=== PATIENT | male | born 1965 ===

== ENCOUNTER 2018-12-22 21:17 | Observation (INO) ==
[2018-12-22] MEDS ORDERED: MAGNESIUM SULF RIDER 2 GM in PREMIX 1 EACH IV PRN (23:21)
[2018-12-22] MEDS ORDERED: guaiFENesin/DM ER 600-30 MG TABLET PO PRN (23:21)
[2018-12-22] MEDS ORDERED: ONDANSETRON 4 MG/2 ML VIAL IV PRN (23:21)
[2018-12-22] MEDS ORDERED: NITROGLYCERIN SL 0.4 MG TABLET SL PRN (23:21)
[2018-12-22] MEDS ORDERED: ACETAMINOPHEN 325 MG TABLET PO PRN (23:21)
[2018-12-22] MEDS ORDERED: diphenhydrAMINE CAP 25 MG CAPSULE PO PRN (23:21)
[2018-12-22] MEDS ORDERED: BISACODYL 5 MG TABLET PO PRN (23:21)
[2018-12-22] MEDS ORDERED: MORPHINE 4 MG/1 ML VIAL IV PRN (23:21)
[2018-12-22] MEDS ORDERED: POTASSIUM CHLORIDE 20 MEQ TABLET PO PRN (23:21)
[2018-12-22] MEDS ORDERED: NICOTINE 21 MG/24 HR PATCH TRANSDERM PRN (23:21)
[2018-12-22] MEDS ORDERED: ZALEPLON 5 MG CAPSULE PO PRN (23:21)
[2018-12-22] MEDS ORDERED: MAGNESIUM SULF RIDER 4 GM in PREMIX 1 EACH IV PRN (23:21)
[2018-12-22] MEDS ORDERED: DEXTROSE 50% 25 GM/50 ML SYRINGE IV PRN (23:58)
[2018-12-22] MEDS ORDERED: GLUCAGON 1 MG VIAL IM PRN (23:58)
[2018-12-23 00:12] LABS: Basophils % 0.4 % (0.0-0.8); Eosinophils # 0.2 10*3/uL (0.0-0.87); Hematocrit 38.1 VOL% (42.0-52.0); Hemoglobin 13.7 GM/DL (14.0-18.0); Immature Granulocytes % 0.4 %; Immature Granulocytes Absolute 0.02 #; Lymphocytes # 1.6 10*3/uL (1.4-4.0); Lymphocytes % 29.9 % (21.2-54.2); Mean Corpuscular Hemoglobin 32 PG (27-34); Mean Corpuscular Volume 88.8 FL (87-102); Mean Platelet Volume 11.1 FL (9.6-12.0); Monocytes # 0.6 10*3/uL (0.11-0.8); Monocytes % 10.9 % (1.7-12.7); Neutrophils # 2.8 10*3/uL (1.4-7.4); Neutrophils % 54.4 % (38.7-73.9); Platelet Count 98 T/CUMM (130-400); Red Blood Count 4.29 MC/CUMM (3.8-5.5); White Blood Count 5.2 T/CUMM (4-12)
[2018-12-23 00:38] LABS: Bilirubin,Total 0.6 MG/DL (0.2-1.0); Calcium 7.8 MG/DL (8.5-10.1); Potassium 3.5 MMOL/L (3.5-5.1); Risk Ratio 4.58; Thyroid Stimulating Hormone 1.91 uIU/ml (0.358-3.74); Total Protein 6.4 G/DL (6.4-8.3)
[2018-12-23 01:04] LABS: Band Neutrophils 1 % (0-10); Eosinophils 5 % (0-10); Lymphocytes 33 % (20-55); Segmented Neutrophils 53 % (50-85)
[2018-12-23 01:05] LABS: Platelet Estimate Decreased; Total Cells Counted 100
[2018-12-23 02:33] LABS: Apearance,Urine CLEAR (Clear); Bilirubin,Urine Negative (Negative); Blood, Urine Negative (Negative); Glucose,Urine (UA) >=500 mg/dL (Negative); Ketones,Urine Negative (Negative); Nitrite,Urine Negative (Negative); Protein,Urine Negative; RBC,Urine 1 /HPF (0-4); Squamous Epithelial Cell,Urine Occasional /HPF (0-10); Urine Color Yellow (Yellow); Urine Specific Gravity 1.035 (1.001-1.035); WBC,Urine 1 /HPF (0-6)
[2018-12-23] MEDS: INSULIN REGULAR 100 UNIT/ML SUBCUT SCH ×2 (08:01→12:29)
[2018-12-23] MEDS ORDERED: MAGNESIUM SULF RIDER 4 GM in PREMIX 1 EACH IV PRN (08:33)
[2018-12-23] MEDS ORDERED: MAGNESIUM SULF RIDER 2 GM in PREMIX 1 EACH IV PRN (08:33)
[2018-12-23] MEDS ORDERED: CARVEDILOL 6.25 MG TABLET PO SCH (09:00)
[2018-12-23] MEDS ORDERED: LISINOPRIL 20 MG TABLET PO SCH (09:00)
[2018-12-23] MEDS ORDERED: ATORVASTATIN 80 MG TABLET PO SCH (09:00)
[2018-12-23] MEDS ORDERED: PANTOPRAZOLE 40 MG TABLET PO SCH (09:00)
[2018-12-23] MEDS ORDERED: INSULIN GLARGINE 100 UNIT/ML SUBCUT SCH (09:00)
[2018-12-23] MEDS ORDERED: ASPIRIN 325 MG TABLET PO SCH (09:00)
[2018-12-23] MEDS ORDERED: ASPIRIN EC 81 MG TABLET PO SCH (09:00)
[2018-12-23 15:40] VITALS: BP 147/78
== END 2018-12-23 16:32 | disposition home or self-care (01) ==
LOC: N.TELES → SUATTDRO 22:43
PROVIDERS: ADMIT Internal Medicine; ATTEND Internal Medicine